=== PATIENT | female | born 2000 | race Hispanic/Latino ===

== ENCOUNTER 2024-02-07 11:17 | Emergency (ER) | payer SELFPAY ==
[2024-02-07 12:01] LABS: #Basophils Less than 0.03 10x3/uL (0.0-0.2); %Basophils 0.3 % (0.0-1.0); %Eosinophils 0.4 % (0.0-10.0); %Monocytes 4.7 % (0.0-10.0); %Neutrophils 65.5 % (42.0-75.0); Hematocrit 41.8 % (36.0-47.0); Mean Corpuscular HGB CONC 33.5 g/dL (32.0-36.0); Mean Corpuscular Hemoglobin 29.4 pg (27.0-31.0); Mean Corpuscular Volume 87.8 fL (78.0-98.0); Mean Platelet Volume 10.5 fL (7.4-10.4); Platelet Count 311 10x3/uL (130-400); RBC Distribution Width 12.7 % (11.5-14.5); Red Blood Cell (RBC) Count 4.76 mill/uL (4.20-5.40)
[2024-02-07 12:14] LABS: BHCG - Serum Negative (NEGATIVE); Pregs Control Background? CLEAR/WHITE (CLR/WHITE); Pregs Control Bar Appear? YES (CONTROL BAR)
[2024-02-07] MEDS ORDERED: Ondansetron ODT 4 MG TAB ONE (12:23)
[2024-02-07 12:28] LABS: ALT (SGPT) 23 U/L (8-55); AST (SGOT) 19 U/L (5-34); Albumin 4.3 g/dL (3.5-5.0); Alkaline Phosphatase 60 U/L (40-110); Anion Gap 14 mmol/L (10-20); BUN (Urea Nitrogen) 15 mg/dL (7.0-18.7); Bilirubin, Total 0.6 mg/dL (0.2-1.2); Calc. Creatinine Clearance 0 mL/min (70-130); Calcium 9.6 mg/dL (7.8-10.44); Carbon Dioxide 21 mmol/L (22-29); Chloride 106 mmol/L (98-107); Estimated GFR 113; Globulin 3.4 g/dL (2.4-3.5); Glucose 111 mg/dL (70-105); Lipase 19 U/L (8-78); Potassium 3.7 mmol/L (3.5-5.1); Protein, Total 7.7 g/dL (6.0-8.3); Sodium 137 mmol/L (136-145)
[2024-02-07] MEDS ORDERED: Meclizine HCl 25 MG TAB ONE ×2 (13:22→13:56)
[2024-02-07] MEDS ORDERED: Acetaminophen 500 MG TAB ONE (13:22)
[2024-02-07 13:56] LABS: Bacteria/HPF None Seen HPF (None Seen); Bilirubin Negative (Negative); Blood, Urine Trace (Negative); CAUTI Indications for Culture Dysuria,urgency,freq; Clarity Clear (Clear); Glucose, Urine (Dipstick) Normal (Negative); Ketone, Urine Negative (Negative); Leukocyte Negative Leu/uL (Negative); Nitrite Negative (Negative); Protein, Urine (Dipstick) Negative (Neg-Trace); RBC/HPF 0-3 HPF (0-3); Specific Gravity, Urine 1.007 (1.002-1.036); Squamous Epithelial 0-3 HPF (0-3); Urobilinogen Normal mg/dL (Less than 2); WBC/HPF 0-3 HPF (0-3)
[2024-02-07 13:58] LABS: Urine Culture Reflex No No
[2024-02-08 05:14] LABS: Chlamydia by PCR, Vaginal Swab Not Detected (NotDetected); GC by PCR, Vaginal Swab Not Detected (NotDetected)
== END 2024-02-07 15:37 | disposition home or self-care (01) ==
LOC: ERS 11:17
DX: H81.13 Benign paroxysmal vertigo, bilateral (principal); B37.31 Acute candidiasis of vulva and vagina
CPT/HCPCS: 36415; 80053; 81001; 83690; 84703; 85025; 87428; 87480; 87491; 87510; 87591; 87660; 93005; Q0162